=== PATIENT | male | born 1995 | race Hispanic/Latino ===

== ENCOUNTER 2024-04-09 07:59 | Emergency (ER) | payer SELFPAY ==
[~2024-04-09] VITALS: Ht 172.7 cm; Wt 77.7 kg
[2024-04-09] MEDS: IBUPROFEN 600 MG TAB PO STA (08:35)
[2024-04-09 09:26] VITALS: PULSE 77; RESP 16; TEMP 98.2; O2SAT 100
== END 2024-04-09 09:44 | disposition home or self-care (01) ==
LOC: FSED 08:06
DX: S90.31XA Contusion of right foot, initial encounter (principal); S90.121A Contusion of right lesser toe(s) without damage to nail, initial encounter; W20.8XXA Other cause of strike by thrown, projected or falling object, initial encounter; Y92.89 Other specified places as the place of occurrence of the external cause
CPT/HCPCS: 99283